=== PATIENT | female | born 1995 | race Caucasian/White ===

== ENCOUNTER 2023-01-13 08:43 | Emergency (ER) | payer SELFPAY ==
[2023-01-13 08:44] VITALS: BP 136/117; PULSE 131; RESP 19; TEMP 36.3; O2SAT 97; BMI 27.6
--- NOTE | 2023-01-13 08:53 | EDS_ITS ---
HPI History of Present Illness Chief Complaint: Allergic Reaction Informant: patient Onset/Context/Timing Onset: Today Current Severity: Severe Maximum Severity: Severe Narrative Narrative: Patient presents secondary to allergic reaction. She states she took generic form of ibuprofen at 630 this morning. She did eat at the time. About an hour later she developed redness diffusely with itching and some facial swelling. She reports mild shortness of breath. She believes she took the same ibuprofen yesterday and did not have any problems. PFSH PFSH Medical History no medical history no medical history Home Medications prednisone 20 mg tablet 40 mg (2 x 20 mg) PO DAILY #8 tabs 01/13/23 [Rx Last Taken Unknown] Allergy/AdvReac Type Severity Reaction Status Date / Time Penicillins Allergy Severe Anaphylaxis Verified 01/13/23 08:47 Social History Smoking Status: Current every day smoker tobacco type: cigarettes ROS ROS ED Constitutional Constitutional ED: Denies chills or fever(s) Eyes Eyes: Reports other Details: Mild bilateral eyelid edema. ; Denies change in vision or discharge from eye(s) ENT ENT ED: Denies discharge from eye(s), rhinorrhea or sore throat Cardiovascular Cardiovascular: Denies chest pain or palpitations Respiratory/Chest Respiratory/Chest: Reports dyspnea; Denies cough Gastrointestinal Gastrointestinal: Denies abdominal pain, nausea or vomiting Genitourinary Genitourinary ED: Denies dysuria Musculoskeletal Musculoskeletal: Denies back pain or extremity pain Integumentary Reports rash; Denies Abrasions Neurologic Neurologic: Denies headache(s) or weakness Psychiatric Psychiatric: Denies anxiety or depression Allergic/Immunologic Allergic/Immunologic ED: Denies lip swelling or urticaria EXAM Physical Exam Narrative Exam Narrative: Patient sitting upright in bed no acute distress. Speaking with strong voice and tolerating secretions well. Const Vital Signs: 01/13/23 08:44 Temperature 97.3 F L Temperature Source Temporal Pulse Rate 131 H Respiratory Rate 19 H Blood Pressure 136/117 H Blood Pressure Mean 123 Pulse Ox 97 Oxygen Delivery Method Room Air Positive well nourished and well developed General Appearance ED: well developed HEENT Reports moist mucous membranes Eyes EOMs intact bilaterally Chest Wall inspection of chest normal and palpation of chest normal Resp normal respiratory effort and clear to auscultation bilaterally Cardio regular rhythm Rate: tachycardic GI non-tender Palpation: soft Neuro oriented x3 and no sensory deficits noted Motor Exam: strength 5/5 throughout Skin Skin Narrative: Diffuse erythematous noted to the skin. MDM MDM MDM Narrative Medical decision making narrative: Patient was on court monitor to observe oxygen saturations and heart rate. IV line established. Patient given Benadryl, Solu-Medrol, Pepcid. Patient was observed for over an hour. Her erythema on her skin has resolved. Her itchiness is resolved. She states her breathing and swelling also feel improved. Patient be given 4 additional days of steroids. She has Benadryl and Pepcid at home that she will take as well. Patient is comfortable with the plan and return instructions have been provided. Discharge Plan Triage Chief Complaint: Allergic Reaction ED Provider: Brigitte Sagastume Dx/Rx/DC Orders Clinical Impression: Allergic reaction Instructions: ED ADVERSE DRUG REACTION Allergic Prescriptions: New prednisone 20 mg tablet 40 mg PO DAILY Qty: 8 0RF Stand Alone Forms: ED Work / School Excuse Primary Care Provider: Care Physician,No Primary Referrals: Jose Montaño MD [Med Staff - Technology Specialist] - As Needed Care Physician,No Primary [Primary Care Provider] - Disposition Disposition: Home, Self Care
[2023-01-13] MEDS: DiphenhydrAMINE 50 MG/ML Syringe 25 MG IV (08:58)
[2023-01-13] MEDS: MethylPREDNISolone 125 MG/2 ML Vial IV (08:58)
[2023-01-13] MEDS: Famotidine 200 MG/20 ML MDV 20 MG in 0.9% Normal Saline (Pres. free 8 ML 300 MG IV (09:02)
[2023-01-13 10:16] VITALS: PULSE 73; RESP 14; O2SAT 99
== END 2023-01-13 10:17 | disposition home or self-care (01) ==
PROVIDERS: Emergency Provider Emergency Medicine; Visit Provider Emergency Medicine
DX: T78.40XA Allergy, unspecified, initial encounter (principal); X58.XXXA Exposure to other specified factors, initial encounter; F17.210 Nicotine dependence, cigarettes, uncomplicated
CPT/HCPCS: 96374; 96375; 99284; A4216; J3490